=== PATIENT | female | born 1955 | race African-American/Black ===

== ENCOUNTER → 2016-06-21 | Outpatient (CLI) | payer OTHER ==
[~2016-06-21] MED LIST: REGADENOSON 0.4 MG/5 ML DISP.SYRIN. IV ONE
== END | disposition home or self-care (01) ==
LOC: PCVCIMAG 12:01
PROVIDERS: ATTEND Internal Medicine Cardiovascular Disease
DX: I25.10 Atherosclerotic heart disease of native coronary artery without angina pectoris (principal); R07.9 Chest pain, unspecified; R06.00 Dyspnea, unspecified; J44.9 Chronic obstructive pulmonary disease, unspecified; I25.2 Old myocardial infarction; Z95.5 Presence of coronary angioplasty implant and graft
CPT/HCPCS: 78452; 93017; A9500; J2785

== ENCOUNTER → 2018-01-27 | Outpatient (CLI) | payer OTHER ==
--- NOTE | 2018-01-27 16:37 | PCVCIMAG ---
APPROVED REPORT Imaging Protocol: Rest Tc-99m/Stress Tc-99m 1 day Study performed: 01/27/2018 09:41:19 Indication: CAD, QUISPE, Progressive Fatigue Patient Location: Out-Patient Stress Nurse: Arabella Arita RN, Reanna Tafoya RN [place] Tech:Laila DEJA TejadaMT Ht: 5 ft 3 in Wt: 150 lbs BSA: 1.71 m2 HR: 67 bpm BP: 168/90 mmHg BMI: 26.5 Medical History Medical History: HTN, Hyperlipidemia, Former Smoker, Diabetes, Age Medications: Xanax, Clonidine, ASA, Glyburide, HCTZ, Irbesartan, Bystolic, Metformin, Pravastatin, Zetia Allergies: Sulfa Previous Cardiac Procedures: PCI - 2012 Stent to the Cx Pretest Chest Pain Characteristics: No chest pain Meds Held (24 hrs): Bystolic Resting Data Rest SPECT myocardial perfusion imaging was performed in supine position 45 minutes following the intravenous injection of 10.2 mCi of Tc-99m Sestamibi. Time of rest injection: 914 Date: 01/27/2018 Administration Route: IV Administration Site: Right AC Pharmacologic Stress Pharmacologic stress test was performed by injecting Regadenoson 0.4 mg IV push over 10-15 seconds immediately followed by the intravenous injection of 34.9 mCi of Tc-99m Sestamibi. Time of stress injection: 1030 Date: 01/27/2018 Administration Route: IV Administration Site: Right Arm Gated Stress SPECT was performed 45 minutes after stress injection. The images were gated to evaluate regional wall motion and calculate left ventricular ejection fraction. Comments Prior Nuclear Stress Test 2017: Non-ischemic Stress Test Details Stress Test: Pharmacologic stress was paired with low level exercise. Reason for pharmacologic stress test: physical limitation, exercise intolerance. HRMax Heart Rate (APMHR): 159 bpm Resting HR: 67 bpmTarget HR (85% APMHR): 135 bpm Max HR Achieved: 106 bpm % of APMHR: 66 Recovery HR: 88 bpm BP Resting BP: 168/90 mmHg Max BP: 148/88 mmHg Recovery BP: 140/80 mmHg ECG Resting ECG: Sinus Rhythm, T wave abnormalites Stress ECG: Sinus Tachycardia, T abnormalities Recovery ECG: Sinus Rhythm, T wave abnormalites Clinical Reason for Termination: Completed protocol Stress Symptoms: Leg Fatigue Exercise duration: 4 min 00 sec Exercise capacity: 1.6 METs Symptoms resolved during recovery. Stress ECG Conclusion ECG: Non-ischemic Study Quality Study: Good Study Data Post stress, the left ventricular ejection was 67%.. SSS: 3 SRS: 6 SDS: 1 TID = 1.18. Perfusion No evidence of stress induced ischemia or prior myocardial infarction. Wall Motion Normal left ventricular size and function with no regional wall motion abnormalities. Nuclear Conclusion No evidence of stress induced ischemia or prior myocardial infarction. Normal left ventricular size and function with no regional wall motion abnormalities. Post stress, the left ventricular ejection was 67%. No change since prior study dated June 2016. Interpreted by: Saul Armenta MD Electronically Approved: 01/27/2018 14:56:26 <Conclusion> ECG: Non-ischemic
== END | disposition home or self-care (01) ==
LOC: PCVCIMAG 09:09
PROVIDERS: ATTEND Internal Medicine Cardiovascular Disease
DX: I25.10 Atherosclerotic heart disease of native coronary artery without angina pectoris (principal); R06.09 Other forms of dyspnea; E11.9 Type 2 diabetes mellitus without complications; E78.5 Hyperlipidemia, unspecified; Z87.891 Personal history of nicotine dependence
CPT/HCPCS: 78452; 93017; A9500; J2785